=== PATIENT | female | born 1960 | race Caucasian/White ===

== ENCOUNTER 2021-06-14 09:50 | Inpatient (IN) | payer OTHER, SELFPAY ==
[2021-06-14] VITALS (11 sets, daily range): BP systolic 109–151; BP diastolic 50–105; PULSE 47–113; RESP 18–24; TEMP 36.2–37.3; O2SAT 89–96; BMI 22.8; BMI 22.6
--- NOTE | 2021-06-14 10:18 | ED.RN ---
pt was placed in er room. 3 l nc oxygen placed. pt oxygenation improved along with respiratory distress.
--- NOTE | 2021-06-14 10:43 | EKG12_ITS ---
Test Reason : SOB Blood Pressure : / mmHG Vent. Rate : 106 BPM Atrial Rate : 106 BPM P-R Int : 112 ms QRS Dur : 078 ms QT Int : 502 ms P-R-T Axes : 069 078 102 degrees QTc Int : 666 ms Sinus tachycardia with frequent Premature ventricular complexes ST & T wave abnormality, consider lateral ischemia Prolonged QT Abnormal ECG Confirmed by BEAU KERNS, JANEL ([id number]), in store marketing associate STEPHANIE CAMERON ([id number]) on 06/15/2021 1:23:37 PM Referred By: GHADA Confirmed By:JANEL YANEZ MD
--- NOTE | 2021-06-14 10:48 | NURSING ---
NO OLD EKGS
[2021-06-14 11:19] LABS: Absolute Lymphocyte Count 1.21 X10^3/uL (0.83-4.51); Absolute Neutrophil Count 4.7 X10^3/uL (2.0-7.7); Basophil# 0.02 X10^3/uL; Basophil% 0.3 % (0-1); Eosinophil# 0.01 X10^3/uL; Eosinophils% 0.2 % (0-5); Hematocrit 43.3 % (37-47); Hemoglobin 14.8 g/dL (12.0-15.0); Lymphocyte # 1.21 X10^3/ul (0.83-4.51); Mean Corp Hgb Conc 34.2 g/dL (32-36); Mean Corpuscular Hgb 29.8 pg (27.0-32.0); Mean Corpuscular Volume 87.3 fL (81-99); Monocyte# 0.39 X10^3/uL; Monocyte% 6.1 % (0-10); NRBC Flagged by Analyzer 0 % (0-5); Neutrophil # 4.73 X10^3/uL (2.7-7.7); Neutrophil % 74.1 % (47-70); Platelet Count 131 K/mm3 (150-450); RBC Distribution Width CV 13.8 % (11.6-14.6); RBC Distribution Width SD 44.3 fl (35.1-43.9); Red Blood Count 4.96 M/mm3 (4.2-5.4); White Blood Count 6.4 K/mm3 (4.4-11.0)
[2021-06-14 11:32] LABS: ALB/GLOB Ratio 0.7 RATIO (0.9-2.4); AST(SGOT) 27 U/L (15-37); Alanine Aminotransfer ALT/SGPT 30 U/L (13-56); Albumin, Serum 2.8 g/dL (3.2-5.0); Alkaline Phosphatase 104 U/L (45-117); Anion Gap 5 (5-15); BUN 9 mg/dL (7-18); BUN/Creat Ratio 11.9 RATIO (10-20); Calcium,Total 8.3 mg/dL (8.5-10.1); Chloride 102 mmol/L (98-107); Creatinine, Serum 0.76 mg/dL (0.55-1.02); EST Glomerular Filtration Rate 82 mL/min (>60); Est Glom Filt Rate - Afr Amer 99 mL/min (>60); Estimated Creatinine Clearance 59.92 ml/min; Globulin 3.9 g/dL (2.2-4.2); Glucose 123 mg/dL (74-106); Protein, Total 6.7 g/dL (6.4-8.2); Sodium Level 135 mmol/L (136-145)
--- NOTE | 2021-06-14 11:38 | RAD_ITS ---
STUDY: X-RAY CHEST REASON FOR EXAM: Female, 61 years old. Shortness of breath. Recent exposure to Covid TECHNIQUE: Single AP portable view of the chest. COMPARISON: None. FINDINGS: Hyperinflation. Mild degree of the increased interstitial markings of the lung bases suggestive of possible mild scarring. Mild increased linear markings in the left upper lobe. There is no demonstrated pleural abnormality. Sternal cerclage wires and vascular clips are present from a prior sternotomy and coronary artery bypass graft procedure (CABG). Normal mediastinum and kami. Normal visualized pulmonary arteries. There is atherosclerotic calcification of the aortic arch with tortuosity. Normal visualized thoracic spine. Normal visualized ribs, clavicles, and shoulders. Hiatal hernia. RAD/Chest 1 View (Portable) IMPRESSION: Hyperinflation. No focal consolidation is seen. Findings suggest mild scarring at the lung bases. Electronically Signed: Fredi Randolph MD at 12:07 EDT , Service support ,
[2021-06-14 11:40] LABS: Lactic Acid 0.9 mmol/L (0.4-1.9)
[2021-06-14] MEDS: dexAMETHasone 4 MG/ML Vial 6 MG IV (12:38)
[2021-06-14] MEDS: Potassium Chloride Oral Tablet 20 MEQ 40 MEQ PO (12:38)
--- NOTE | 2021-06-14 14:06 | EDS_ITS ---
HPI History of Present Illness Chief Complaint: Shortness of Breath Informant: patient Onset/Context/Timing Onset: Days (3) Context: gradual Timing: Continuous Quality: Positive for Dyspnea on exertion Worsened by: Coughing Relieved by: Nothing Associated Symptoms cough, sore throat, white sputum and yellow sputum; Negative for rhinorrhea, ear pain, fever or chills Chest Pain: Positive for None Narrative Narrative: Patient presents with shortness of breath that has been getting worse over the last 3 days. Patient states her mother recently tested positive for COVID-19. Patient has been exposed to her but does not live with her. Patient is not on home oxygen. Patient admits to a cough with some yellow and white sputum. Patient states her breathing is worse with coughing. Patient also admits to a sore throat. Patient denies any fevers or chills. Patient denies any chest pain. Patient also admits to some nausea, vomiting, and diarrhea. Patient also admits to mild headache. PE Risk Factors: Positive for Cancer; Negative for OCP + Smoking + > 35, Prior DVT or PE, Recent immobilization, Recent surgery and Recent travel [facility] Medical History Coronary artery disease GERD (gastroesophageal reflux disease) Skin cancer Home Medications amitriptyline 25 mg PO DAILY 06/14/21 [History Last Taken Unknown] atorvastatin 80 mg PO DAILY 06/14/21 [History Last Taken Unknown] citalopram mg 06/14/21 [History Last Taken Unknown] clobetasol 1 applic TOPICAL BID 06/14/21 [History Last Taken Unknown] ezetimibe 10 mg PO DAILY 06/14/21 [History Last Taken Unknown] levothyroxine [Synthroid] 75 mcg PO DAILY 06/14/21 [History Last Taken Unknown] metoprolol tartrate 25 mg PO BID 06/14/21 [History Last Taken Unknown] oxycodone-acetaminophen 1 tab PO Q6H PRN PRN 06/14/21 [History Last Taken Unknown] pantoprazole 40 mg PO DAILY 06/14/21 [History Last Taken Unknown] pregabalin 50 mg PO DAILY 06/14/21 [History Last Taken Unknown] ranolazine 1,000 mg PO BID 06/14/21 [History Last Taken Unknown] Allergy/AdvReac Type Severity Reaction Status Date / Time gabapentin Allergy Rash Verified 06/14/21 09:52 Surgical History History of cholecystectomy Hx of CABG Hx of heart artery stent Social History Smoking Status: Current every day smoker tobacco type: cigarettes ROS ROS ED Constitutional Constitutional ED: Denies chills or fever(s) Eyes Eyes: Denies blurry vision or change in vision ENT ENT ED: Denies rhinorrhea or sore throat Cardiovascular Cardiovascular: Denies chest pain or palpitations Respiratory/Chest Respiratory/Chest: Reports cough, dyspnea and sputum Gastrointestinal Gastrointestinal: Reports diarrhea, nausea and vomiting Genitourinary Genitourinary ED: Denies dysuria or hematuria Musculoskeletal Musculoskeletal: Denies back pain or neck pain Integumentary Denies abscess or rash Neurologic Neurologic: Reports headache(s); Denies weakness Allergic/Immunologic Allergic/Immunologic ED: Denies mouth swelling or urticaria EXAM Physical Exam Const Vital Signs: 06/14/21 09:51 06/14/21 11:16 06/14/21 11:24 Temperature 98.7 F 99.2 F H Temperature Source Temporal Oral Pulse Rate 111 H 108 H Respiratory Rate 18 24 H Respiratory Effort Short of Breath Respiratory Depth Deep Respiratory Pattern Tachypnea Blood Pressure 123/105 H 112/66 Blood Pressure Mean 111 81 Pulse Ox 89 92 Oxygen Delivery Method Room Air Nasal Cannula Nasal Cannula Oxygen Flow Rate (L/min) 3 3 06/14/21 12:10 06/14/21 14:06 06/14/21 14:41 Temperature 98.7 F 98.8 F Temperature Source Oral Oral Pulse Rate 109 H 113 H Respiratory Rate 24 H 24 H Respiratory Effort Respiratory Depth Respiratory Pattern Blood Pressure 151/54 H 109/54 L 110/68 Blood Pressure Mean 86 72 82 Pulse Ox 94 91 92 Oxygen Delivery Method Nasal Cannula Nasal Cannula Nasal Cannula Oxygen Flow Rate (L/min) 3 3 Positive well nourished and well developed General Appearance ED: well developed HEENT Reports moist mucous membranes Neck supple and no JVD Resp normal respiratory effort Auscultation: diminished lung sounds diffuse Cardio regular rate, regular rhythm and no murmurs GI normal to inspection, nondistended, normoactive bowel sounds and non-tender Palpation: soft Extremity normal to inspection General Extremety ED: Negative for edema or tenderness General Extremity: Negative for edema Neuro oriented x3, CN's II-XII intact bilaterally and no sensory deficits noted Sensorium / Orientation: alert Motor Exam: strength 5/5 throughout Psych mental status grossly normal Skin no rashes or lesions noted MDM MDM MDM Narrative Medical decision making narrative: EKG was obtained. On my interpretation, it showed a sinus tachycardia with a rate of 106. There are frequent PVCs noted. There are nonspecific ST-T wave changes noted. QT interval is somewhat prolonged at 666 ms. [place] interval and QRS intervals were normal. Harmony was normal. There are no prior EKGs available for comparison. Portable 1 view chest x-ray was obtained. On my interpretation, lung palomino are show chronic changes and hyperinflation. There is normal cardiac silhouette. Bony thorax is normal. There is no acute process noted. Radiologist also interpreted the x- ray and agrees. CBC and comprehensive metabolic profile were essentially within normal limits. Potassium was low at 3.0. Patient was given a dose of oral potassium here. Lactate was normal. COVID-19 rapid antigen was obtained and was positive. Patient's oxygen saturation while resting in bed were normal however, her sats would drop when she moved in bed and got up to use the bedside commode. Patient was given a dose of Decadron here. Case was discussed with the hospitalist. He will admit the patient to his service. Patient understood and was agreeable with that plan. All questions were answered. Lab Data Attestation: I reviewed the patient's lab results. Labs: Laboratory Results - last 24 hr 06/14/21 06/14/21 06/14/21 11:03 11:03 11:03 WBC 6.4 RBC 4.96 Hgb 14.8 Hct 43.3 MCV 87.3 MCH 29.8 MCHC 34.2 RDW Std Deviation 44.3 H RDW Coeff of Hodan 13.8 Plt Count 131 L MPV 11.0 Immature Gran % (Auto) 0.300 Neut % (Auto) 74.1 H Lymph % (Auto) 19.0 Crenshaw % (Auto) 6.1 Eos % (Auto) 0.2 Baso % (Auto) 0.3 Absolute Neuts (auto) 4.7 Absolute Lymphs (auto) 1.21 Nucleated RBC % 0 Sodium 135 L Potassium 3.0 L Chloride 102 Carbon Dioxide 28.0 Anion Gap 5 BUN 9 Creatinine 0.76 Estim Creat Clear Calc 59.92 Est GFR (MDRD) Af Amer 99 Est GFR (MDRD) Non-Af 82 BUN/Creatinine Ratio 11.9 Glucose 123 H Lactic Acid 0.9 Calcium 8.3 L Total Bilirubin 0.50 AST 27 ALT 30 Alkaline Phosphatase 104 Total Protein 6.7 Albumin 2.8 L Globulin 3.9 Albumin/Globulin Ratio 0.7 L Radiography Diagnostic Testing: Radiology Impression Chest X-Ray 06/14/21 11:38 IMPRESSION: Hyperinflation. No focal consolidation is seen. Findings suggest mild scarring at the lung bases. Electronically Signed: Fredi Randolph MD at 12:07 EDT , Service support , EKG Initial EKG: Attestation: I personally reviewed and interpreted this EKG as follows: Interpretation: Sinus Tachycardia (106) and Non-Specific ST Changes Prior EKG tracings: not available for review Treatment and Re-Evaluation Vital Sign Attestation:: Vital signs were reviewed prior to admission. They are stable. Discharge Plan Dx/Rx/DC Orders Clinical Impression: COVID-19, Hypoxia Disposition Disposition: Acute Care [facility]
--- NOTE | 2021-06-14 14:09 | NURSING ---
DR LOGAN VICENTE
--- NOTE | 2021-06-14 14:31 | PCM.HP.STD ---
HPI - General HPI Narrative JOSE DAVID DARBY, is a 61 F who presents with generalized illness for the past 3 days. Patient has been experiencing myalgia's, nausea vomiting diarrhea. More recently she has been having increasing shortness of breath and presented to the emergency room. She presented 89% on room air was placed on 3 L and her sats have been in the 90s. Patient did receive dexamethasone 6 mg x 1. Patient stated that she contracted Covid from her mother. Patient has not been vaccinated. [facility] Medical History Coronary artery disease GERD (gastroesophageal reflux disease) Skin cancer Home Medications amitriptyline 25 mg PO DAILY 06/14/21 [History Last Taken Unknown] atorvastatin 80 mg PO DAILY 06/14/21 [History Last Taken Unknown] citalopram mg 06/14/21 [History Last Taken Unknown] clobetasol 1 applic TOPICAL BID 06/14/21 [History Last Taken Unknown] ezetimibe 10 mg PO DAILY 06/14/21 [History Last Taken Unknown] levothyroxine [Synthroid] 75 mcg PO DAILY 06/14/21 [History Last Taken Unknown] metoprolol tartrate 25 mg PO BID 06/14/21 [History Last Taken Unknown] oxycodone-acetaminophen 1 tab PO Q6H PRN PRN 06/14/21 [History Last Taken Unknown] pantoprazole 40 mg PO DAILY 06/14/21 [History Last Taken Unknown] pregabalin 50 mg PO DAILY 06/14/21 [History Last Taken Unknown] ranolazine 1,000 mg PO BID 06/14/21 [History Last Taken Unknown] Allergy/AdvReac Type Severity Reaction Status Date / Time gabapentin Allergy Rash Verified 06/14/21 09:52 Surgical History History of cholecystectomy Hx of CABG Hx of heart artery stent Social History Smoking Status: Current every day smoker tobacco type: cigarettes ROS ROS Narrative All review of systems were negative except as mentioned above in the history of present illness and the other review of systems. Vital Signs Vital Signs Vital Signs: 06/14/21 09:51 06/14/21 11:16 06/14/21 11:24 Temperature 37.1 C 37.3 C H Temperature Source Temporal Oral Pulse Rate 111 H 108 H Respiratory Rate 18 24 H Respiratory Effort Short of Breath Respiratory Depth Deep Respiratory Pattern Tachypnea Blood Pressure 123/105 H 112/66 Blood Pressure Mean 111 81 Pulse Ox 89 92 Oxygen Delivery Method Room Air Nasal Cannula Nasal Cannula Oxygen Flow Rate (L/min) 3 3 06/14/21 12:10 06/14/21 14:06 Temperature 37.1 C Temperature Source Oral Pulse Rate 109 H Respiratory Rate 24 H Respiratory Effort Respiratory Depth Respiratory Pattern Blood Pressure 151/54 H 109/54 L Blood Pressure Mean 86 72 Pulse Ox 94 91 Oxygen Delivery Method Nasal Cannula Nasal Cannula Oxygen Flow Rate (L/min) 3 Weight Weight: 56.699 kg Body Mass Index (BMI) 22.8 Physical Exam Const alert Constitutional Narrative: Uncomfortable. Afebrile. Nontoxic. HEENT normocephalic Resp normal respiratory effort, no retractions, no use of accessory muscles and clear to auscultation bilaterally Cardio regular rate, regular rhythm, S1 normal heart sound and S2 normal heart sound GI normal to inspection, nondistended, normoactive bowel sounds, soft to palpation, non-tender and non-distended Extremity normal to inspection Skin Skin Narrative: Raised lesion on her owusu with scab overlying Neuro Sensorium / Orientation: awake and alert Psych Mood & Affect: anxious Results Lab / Micro Data Attestation: I reviewed the patient's lab results. Result Diagrams: 06/14/21 11:03 06/14/21 11:03 Labs: Laboratory Results - last 24 hr 06/14/21 11:03: WBC 6.4, RBC 4.96, Hgb 14.8, Hct 43.3, MCV 87.3, MCH 29.8, MCHC 34.2, RDW Std Deviation 44.3 H, RDW Coeff of Hodan 13.8, Plt Count 131 L, MPV 11.0, Immature Gran % (Auto) 0.300, Neut % (Auto) 74.1 H, Lymph % (Auto) 19.0, Robertson % (Auto) 6.1, Eos % (Auto) 0.2, Baso % (Auto) 0.3, Absolute Neuts (auto) 4.7, Absolute Lymphs (auto) 1.21, Nucleated RBC % 0 06/14/21 11:03: Sodium 135 L, Potassium 3.0 L, Chloride 102, Carbon Dioxide 28.0, Anion Gap 5, BUN 9, Creatinine 0.76, Estim Creat Clear Calc 59.92, Est GFR (MDRD) Af Amer 99, Est GFR (MDRD) Non-Af 82, BUN/Creatinine Ratio 11.9, Glucose 123 H, Calcium 8.3 L, Total Bilirubin 0.50, AST 27, ALT 30, Alkaline Phosphatase 104, Total Protein 6.7, Albumin 2.8 L, Globulin 3.9, Albumin/Globulin Ratio 0.7 L 06/14/21 11:03: Lactic Acid 0.9 Micro: Microbiology 06/14/21 11:14 Nasal Secretion SARS-CoV-2 Antigen (Rapid) - Final SARS-CoV-2 (COVID 19) Radiology Impression Chest X-Ray 06/14/21 11:38 IMPRESSION: Hyperinflation. No focal consolidation is seen. Findings suggest mild scarring at the lung bases. Electronically Signed: Fredi Randolph MD at 12:07 EDT , Service support , Assessment & Plan Assessment/Plan (1) COVID-19: (2) Hypoxia: PLAN: 1. Acute COVID-19 pneumonia Onset was 06/11, patient will need to quarantine until the th Patient received dexamethasone in the emergency room. Will start patient on remdesivir as she has required oxygen. Consult placed to infectious disease to see if patient would be a candidate for bacitinib Patient unvaccinated Informed the patient and her significant other that we are here to try to help and if she is would put her trust in the physicians here then we can initiate the after mentioned treatment. I did tell her that if she wants ivermectin that she would need to go to [facility]. She had nursing and other comfortable with remaining here. Informed them both that it is unclear as the trajectory of her symptoms but we will do all that we can to prevent her from getting worse. Check D-dimer and if elevated for age, check a CT angiogram of the chest. Inform the patient significant other who is at bedside that he would need to quarantine for 14 days and get tested. I did not ask his vaccination status. 2. CAD Status post CABG Stable 3. Hypokalemia Replaced emergency room Monitor 4. VTE prophylaxis: High risk. 40 mg of enoxaparin twice daily. Charges/Coding Visit Charges Inpatient E&M: 86385 Init Hosp L3
--- NOTE | 2021-06-14 14:34 | NURSING ---
MED SURG LOGAN MONTEJO 19, HYPOXIA
--- NOTE | 2021-06-14 17:49 | PCS.PANDOC ---
PANDEMIC DOCUMENTATION INITIATED: Date: 05/16/2021 Time: 190
[2021-06-14] MEDS: 0.9% Saline Lock 10 ML Syringe IV (18:31)
[2021-06-14] MEDS: Ondansetron 4 MG/2 ML Vial IV (18:31)
--- NOTE | 2021-06-14 20:14 | CT_ITS ---
STUDY: CTA CHEST REASON FOR EXAM: Female, 61 years old. Elevated D-dimer RADIATION DOSAGE (If Supplied By Facility): CTDIvol = ( 6.79 ) mGy, DLP = ( 227.13 ) mGycm TECHNIQUE: The examination was performed with the intravenous administration of IV 75mL Isovue-370. Post-processing of the angiographic images was performed, with multiplanar reformation and 3D reconstruction. Individualized dose optimization techniques were used for this CT. COMPARISON: None. FINDINGS: Normal enhancement of the main pulmonary artery and right and left pulmonary arteries. Normal enhancement of the bilateral peripheral pulmonary arteries. There is no demonstrated pulmonary embolism. Normal thoracic aorta and visualized great vessels. There is no demonstrated aortic dissection. There are calcifications of the coronary arteries. Evidence of prior CABG. Normal mediastinum. Normal hilar regions. Normal visualized trachea and bronchi. The lungs are well expanded. Emphysema. Spiculated right upper lobe nodule measures 8 mm. Area of scarring and nodularity within the left upper lobe. Nodular focus measures up to 7 mm Normal pleura. Normal chest wall structures. Normal osseous structures. There is a large hiatal hernia composed mostly of the fundus of the stomach. Cholecystectomy. CT/CTA Chest W/WO Contrast IMPRESSION: No demonstrated pulmonary embolism or arterial dissection. Pulmonary nodules and emphysematous disease as above. Largest nodule measures up to 8 mm. The Fleischner society pulmonary nodule recommendations are usually for follow-up and management of nodules smaller than 8 mm. Detected Incidentally at non-screening CT Nodule size (mm) less than or equal to 4 low risk patients: no follow-up needed high risk patients: follow-up at 12 months and if no change, no further imaging needed Nodule size > 4 - 6 mm low risk patients: follow-up at 12 months and if no change, no further imaging needed high risk patients: initial follow-up CT at 6 - 12 months and then at 18 - 24 months if no change Nodule size > 6 - 8 mm low risk patients: initial follow-up CT at 6 - 12 months and then at 18 - 24 months if no change high risk patients: initial follow-up CT at 3 - 6 months and then at 9 - 12 and 24 months if no change Nodule size > 8 mm either low or high risk patients: follow-up CTs at around 3, 9, and [address], PET, and / or biopsy Note: Newly detected indeterminate nodule in persons 35 years of age or older. Low risk patients: minimal or absent history of smoking and or other known risk factors high risk patients: history of smoking or of other known risk factors KNOWN RISK FACTORS: History of lung cancer in first-degree relative; exposure to asbestos, radon, or uranium. NOTE: Nonsolid, partially solid, or ground-glass nodules may require longer follow-up to exclude indolent adenocarcinoma. Electronically Signed: Danilo Escobar MD at 21:39 EDT Tel , Service support ,
[2021-06-14] MEDS: Enoxaparin 40 MG/0.4 ML Syringe SC (22:29)
[2021-06-14] MEDS: guaiFENesin 600 MG Tablet PO (22:29)
[2021-06-14] MEDS: Metoprolol Tartrate 25 MG Tablet PO (22:29)
[2021-06-14] MEDS: Ranolazine 500 MG Tablet 1000 MG PO (22:29)
[2021-06-14] MEDS: Atorvastatin Calcium 80 MG Tablet PO (22:29)
[2021-06-15] VITALS (13 sets, daily range): BP systolic 89–119; BP diastolic 51–66; PULSE 55–82; RESP 18–24; TEMP 36.1–36.6; O2SAT 90–98
[2021-06-15] MEDS: Levothyroxine 75 MCG Tablet PO (05:52)
[2021-06-15 06:16] LABS: Absolute Lymphocyte Count 1.24 X10^3/uL (0.83-4.51); Absolute Neutrophil Count 3.7 X10^3/uL (2.0-7.7); Basophil# 0.01 X10^3/uL; Basophil% 0.2 % (0-1); Hematocrit 40.5 % (37-47); Hemoglobin 13.8 g/dL (12.0-15.0); Lymphocyte # 1.24 X10^3/ul (0.83-4.51); Lymphocyte % 22.8 % (19-41); Mean Corp Hgb Conc 34.1 g/dL (32-36); Mean Corpuscular Hgb 30.3 pg (27.0-32.0); Mean Platelet Vol. 10.9 fl (6.2-12.0); Monocyte# 0.43 X10^3/uL; Monocyte% 7.9 % (0-10); NRBC Flagged by Analyzer 0 % (0-5); Neutrophil # 3.73 X10^3/uL (2.7-7.7); Neutrophil % 68.5 % (47-70); Platelet Count 149 K/mm3 (150-450); RBC Distribution Width SD 45.9 fl (35.1-43.9); Red Blood Count 4.55 M/mm3 (4.2-5.4); White Blood Count 5.4 K/mm3 (4.4-11.0)
[2021-06-15 06:53] LABS: ALB/GLOB Ratio 0.7 RATIO (0.9-2.4); AST(SGOT) 27 U/L (15-37); Alanine Aminotransfer ALT/SGPT 29 U/L (13-56); Albumin, Serum 2.5 g/dL (3.2-5.0); Alkaline Phosphatase 91 U/L (45-117); Anion Gap 7 (5-15); BUN 14 mg/dL (7-18); BUN/Creat Ratio 25.4 RATIO (10-20); Calcium,Total 7.8 mg/dL (8.5-10.1); Chloride 110 mmol/L (98-107); Creatinine, Serum 0.55 mg/dL (0.55-1.02); EST Glomerular Filtration Rate 118 mL/min (>60); Est Glom Filt Rate - Afr Amer 143 mL/min (>60); Globulin 3.6 g/dL (2.2-4.2); Glucose 106 mg/dL (74-106); Potassium 3.5 mmol/L (3.5-5.1); Protein, Total 6.1 g/dL (6.4-8.2); Sodium Level 138 mmol/L (136-145)
[2021-06-15] MEDS: guaiFENesin 600 MG Tablet PO ×2 (09:19→21:39)
[2021-06-15] MEDS: Ranolazine 500 MG Tablet 1000 MG PO ×2 (09:19→21:40)
[2021-06-15] MEDS: Enoxaparin 40 MG/0.4 ML Syringe SC ×2 (09:19→21:40)
[2021-06-15] MEDS: Metoprolol Tartrate 25 MG Tablet PO (09:19)
[2021-06-15] MEDS: Pregabalin 50 MG Capsule PO (09:19)
[2021-06-15] MEDS: dexAMETHasone 4 MG Tablet 6 MG PO (09:19)
[2021-06-15] MEDS: Ezetimibe 10 MG Tablet PO (09:19)
[2021-06-15] MEDS: Pantoprazole Sodium 40 MG Tablet PO (09:19)
[2021-06-15] MEDS: Amitriptyline 25 MG Tablet PO (09:20)
--- NOTE | 2021-06-15 09:20 | NURSING ---
pt placed on tele monitor as per nursing measure d/t per continuous pulse ox reading in room, pt dalila down to 41 for little while after she has coughing spells.
--- NOTE | 2021-06-15 09:31 | ED.RN ---
documented on wrong chart
--- NOTE | 2021-06-15 11:30 | CASEMGMT ---
CINDY WYLIE Assessment: Face to Face with pt for initial transition planning/care coordination assessment. CINDY WYLIE introduced self and role at [facility], pt voices understanding and consents to assessment. Pt is A/O x4 and answers all questions appropriately at this time. Pt lying in bed with O2 on in no distress. Care providers, pharmacy, and demographics verified/updated. Admitting Dx: COVID 19 PCP:Emily Specialists: in [place] cardio Preferred Pharmacy: [facility] [place] Insurance: [facility] Shared Services Prescription Benefit: yes LW/HPOA: Pt denies having a LW/DPOA and denies need for info regarding AD. LNOK: Cody Hurst, Living Arrangements: Pt lives with and 10 year old granddtr in a single story house with 2 steps to enter with a rail. Pt reports being I in ADL's and denies concerns at home. Transportation: Pt drives self and denies concerns with transportation. DME/HHC/SNF: Pt has a shower chair, crutches, walker and BSC. She does not use any of the items. Pt denies previous HHC or SNF stays. Pt was tested at [facility]. She states her and granddtr and are not positive and she has been quarantining from them, using separate bedrooms and bathrooms. Provided pt with a verbal list of local in network DME companies, pt chose [employer] should she need O2 upon dc. Pt states she has family who can provide her with groceries and supplies. Pt states no concerns with going home at time of dc. Pt states no further concerns/needs. CM to follow. Advised pt to ask CM if any further question/concerns/needs arise, voices understanding. Pt Goal: Home Plan: Home
--- NOTE | 2021-06-15 14:50 | PCM.PN.HOSP ---
Subjective Subjective Feeling better. Objective Data Objective Data Vital Signs: Vital Signs Temp Pulse Resp BP Pulse Ox 36.6 C 66 18 105/52 L 92 06/15/21 11:47 06/15/21 13:07 06/15/21 13:07 06/15/21 13:07 06/15/21 13:07 Oxygen Flow Rate (L/min) 3 Oxygen Delivery Method Nasal Cannula Weight: 56.2 kg Body Mass Index (BMI) 22.6 Intake & Output: Intake and Output for Last 24 Hours 06/13/21 06/14/21 06/15/21 23:59 23:59 23:59 Intake Total 750.75 / 900.75 450 / 450 Output Total 400 / 400 Balance 750.75 / 500.75 50 / 50 Lab / Micro Data Result Diagrams: 06/15/21 06:00 06/15/21 06:00 Labs: Laboratory Results - last 24 hr 06/14/21 19:29: D-Dimer Quant (PE/DVT) 1.10 H* 06/15/21 06:00: WBC 5.4, RBC 4.55, Hgb 13.8, Hct 40.5, MCV 89.0, MCH 30.3, MCHC 34.1, RDW Std Deviation 45.9 H, RDW Coeff of Hodan 14.0, Plt Count 149 L, MPV 10.9, Immature Gran % (Auto) 0.600, Neut % (Auto) 68.5, Lymph % (Auto) 22.8, [place] % (Auto) 7.9, Eos % (Auto) 0.0, Baso % (Auto) 0.2, Absolute Neuts (auto) 3.7, Absolute Lymphs (auto) 1.24, Nucleated RBC % 0 06/15/21 06:00: Sodium 138, Potassium 3.5, Chloride 110 H, Carbon Dioxide 21.0, Anion Gap 7, BUN 14, Creatinine 0.55, Estim Creat Clear Calc 82.80, Est GFR (MDRD) Af Amer 143, Est GFR (MDRD) Non-Af 118, BUN/Creatinine Ratio 25.4 H, Glucose 106, Calcium 7.8 L, Total Bilirubin 0.40, AST 27, ALT 29, Alkaline Phosphatase 91, Total Protein 6.1 L, Albumin 2.5 L, Globulin 3.6, Albumin/Globulin Ratio 0.7 L Micro: Microbiology 06/14/21 11:14 Nasal Secretion SARS-CoV-2 Antigen (Rapid) - Final SARS-CoV-2 (COVID 19) Radiography Diagnostic Testing: Radiology Impression Chest CTA 06/14/21 20:14 IMPRESSION: No demonstrated pulmonary embolism or arterial dissection. Pulmonary nodules and emphysematous disease as above. Largest nodule measures up to 8 mm. The Fleischner society pulmonary nodule recommendations are usually for follow-up and management of nodules smaller than 8 mm. Detected Incidentally at non-screening CT Nodule size (mm) less than or equal to 4 low risk patients: no follow-up needed high risk patients: follow-up at 12 months and if no change, no further imaging needed Nodule size > 4 - 6 mm low risk patients: follow-up at 12 months and if no change, no further imaging needed high risk patients: initial follow-up CT at 6 - 12 months and then at 18 - 24 months if no change Nodule size > 6 - 8 mm low risk patients: initial follow-up CT at 6 - 12 months and then at 18 - 24 months if no change high risk patients: initial follow-up CT at 3 - 6 months and then at 9 - 12 and 24 months if no change Nodule size > 8 mm either low or high risk patients: follow-up CTs at around 3, 9, and 24 months dynamic contrast enhanced CT, PET, and / or biopsy Note: Newly detected indeterminate nodule in persons 35 years of age or older. Low risk patients: minimal or absent history of smoking and or other known risk factors high risk patients: history of smoking or of other known risk factors KNOWN RISK FACTORS: History of lung cancer in first-degree relative; exposure to asbestos, radon, or uranium. NOTE: Nonsolid, partially solid, or ground-glass nodules may require longer follow-up to exclude indolent adenocarcinoma. Electronically Signed: Danilo Escobar MD at 21:39 EDT Tel , Service support , Physical Exam Const alert Resp normal respiratory effort, no retractions, no use of accessory muscles and clear to auscultation bilaterally Cardio regular rate, regular rhythm, S1 normal heart sound and S2 normal heart sound GI normal to inspection, nondistended, normoactive bowel sounds, soft to palpation, non-tender and non-distended Neuro Sensorium / Orientation: awake and alert Assessment & Plan Assessment/Plan (1) COVID-19: (2) Hypoxia: PLAN: 1. Acute COVID-19 pneumonia Onset was 06/11, patient will need to quarantine until the Patient received dexamethasone in the emergency room. Will start patient on remdesivir as she has required oxygen. Patient unvaccinated Informed the patient and her significant other that we are here to try to help and if she is would put her trust in the physicians here then we can initiate the after mentioned treatment. I did tell her that if she wants ivermectin that she would need to go to [facility]. She had nursing and other comfortable with remaining here. Informed them both that it is unclear as the trajectory of her symptoms but we will do all that we can to prevent her from getting worse. Check D-dimer and if elevated for age, check a CT angiogram of the chest. Informed the patient's significant other who is at bedside that he would need to quarantine for 14 days and get tested. I did not ask his vaccination status. There is elevated and patient did have a CT angiogram of the chest. And personally reviewed the CTA of the chest and did not show any obvious pulmonary infiltrates that are typically seen with COVID-19. This showed some emphysematous changes. I suspect that patient likely has an acute exacerbation of COPD related with her COVID-19. Patient is unvaccinated presents relatively soon but her CAT scan was pretty unremarkable. Will continue with treatment for dexamethasone as well as remdesivir. If patient continues to improve then may consider discharge in the near future. Advised patient get the COVID-19 vaccine in 1 to 2 months. She states that she was supposed to get it in the next week or 2 but was unable to do so earlier due to a myriad of other nonmedical issues. 2. CAD Status post CABG Stable 3. Hypokalemia Replaced emergency room Monitor 4. VTE prophylaxis: High risk. 40 mg of enoxaparin twice daily. Charges/Coding Visit Charges Inpatient E&M: 54248 Subs Hosp L2
--- NOTE | 2021-06-15 19:52 | CON.PCM.ID_ITS ---
Assessment & Plan Assessment/Plan (1) COVID-19: PLAN: Sx started late on 06/10. Unvaccinated. On dex, remdesivir. Stuart rantine until 06/30, after that recommend covid vaccine. to get tested for covid, may be candidate for monoclonal Abs. Will follow, thank you (2) Hypoxia: HPI Consult Data Date of Consult: 06/15/21 HPI Narrative HPI Narrative: JOSE DAVID DARBY, is a 61 F who presented 06.14 with sx starting late on 06/10, c/o headache, cough, n/v/d, aches. Her mother tested (+) that same day, now admitted to another hospital. and granddaughter at home asymptomatic, he is trying to get tested. None vaccinated. Came to ED with worsening dyspnea. Full ROS performed and neg except as noted above. [facility] Medical History Coronary artery disease GERD (gastroesophageal reflux disease) Skin cancer Home Medications amitriptyline 25 mg PO DAILY 06/14/21 [History Last Taken 06/13/21] atorvastatin 80 mg PO DAILY 06/14/21 [History Last Taken 06/13/21] citalopram 10 mg PO DAILY 06/14/21 [History Last Taken 06/13/21] clobetasol 1 applic TOPICAL BID 06/14/21 [History Last Taken Unknown] ezetimibe 10 mg PO DAILY 06/14/21 [History Last Taken 06/13/21] levothyroxine [Synthroid] 75 mcg PO DAILY 06/14/21 [History Last Taken 06/13/21] metoprolol tartrate 25 mg PO BID 06/14/21 [History Last Taken 06/13/21] oxycodone-acetaminophen 1 tab PO Q6H PRN PRN 06/14/21 [History Last Taken Unknown] pantoprazole 40 mg PO DAILY 06/14/21 [History Last Taken 06/13/21] pregabalin 50 mg PO DAILY 06/14/21 [History Last Taken 06/13/21] ranolazine 1,000 mg PO BID 06/14/21 [History Last Taken 06/13/21] Allergy/AdvReac Type Severity Reaction Status Date / Time gabapentin Allergy Rash Verified 09/14/21 09:52 Surgical History History of cholecystectomy Hx of CABG Hx of heart artery stent Social History Smoking Status: Never smoker Physical Exam Const alert and oriented x3 General Appearance: cooperative Exam Limitations: no limitations HEENT normocephalic and head/scalp atraumatic Eyes PERRL and EOMs intact bilaterally Neck supple and No nodes Resp Auscultation: diminished lung sounds Cardio regular rate and regular rhythm GI normal to inspection, nondistended, normoactive bowel sounds Extremity no clubbing, cyanosis or edema Skin no rashes or lesions noted Neuro CN's II-XII intact bilaterally Lab / Micro Data Result Diagrams: 06/15/21 06:00 06/15/21 06:00 Labs: Laboratory Results - last 24 hr 06/14/21 19:29: D-Dimer Quant (PE/DVT) 1.10 H* 06/15/21 06:00: WBC 5.4, RBC 4.55, Hgb 13.8, Hct 40.5, MCV 89.0, MCH 30.3, MCHC 34.1, RDW Std Deviation 45.9 H, RDW Coeff of Hodan 14.0, Plt Count 149 L, MPV 10.9, Immature Gran % (Auto) 0.600, Neut % (Auto) 68.5, Lymph % (Auto) 22.8, [place] % (Auto) 7.9, Eos % (Auto) 0.0, Baso % (Auto) 0.2, Absolute Neuts (auto) 3.7, Absolute Lymphs (auto) 1.24, Nucleated RBC % 0 06/15/21 06:00: Sodium 138, Potassium 3.5, Chloride 110 H, Carbon Dioxide 21.0, Anion Gap 7, BUN 14, Creatinine 0.55, Estim Creat Clear Calc 82.80, Est GFR (MDRD) Af Amer 143, Est GFR (MDRD) Non-Af 118, BUN/Creatinine Ratio 25.4 H, Glucose 106, Calcium 7.8 L, Total Bilirubin 0.40, AST 27, ALT 29, Alkaline Phosphatase 91, Total Protein 6.1 L, Albumin 2.5 L, Globulin 3.6, Albumin/Globulin Ratio 0.7 L Radiology Impression Chest CTA 06/14/21 20:14 IMPRESSION: No demonstrated pulmonary embolism or arterial dissection. Pulmonary nodules and emphysematous disease as above. Largest nodule measures up to 8 mm. The Fleischner society pulmonary nodule recommendations are usually for follow-up and management of nodules smaller than 8 mm. Detected Incidentally at non-screening CT Nodule size (mm) less than or equal to 4 low risk patients: no follow-up needed high risk patients: follow-up at 12 months and if no change, no further imaging needed Nodule size > 4 - 6 mm low risk patients: follow-up at 12 months and if no change, no further imaging needed high risk patients: initial follow-up CT at 6 - 12 months and then at 18 - 24 months if no change Nodule size > 6 - 8 mm low risk patients: initial follow-up CT at 6 - 12 months and then at 18 - 24 months if no change high risk patients: initial follow-up CT at 3 - 6 months and then at 9 - 12 and 24 months if no change Nodule size > 8 mm either low or high risk patients: follow-up CTs at around 3, 9, and 24 months dynamic contrast enhanced CT, PET, and / or biopsy Note: Newly detected indeterminate nodule in persons 35 years of age or older. Low risk patients: minimal or absent history of smoking and or other known risk factors high risk patients: history of smoking or of other known risk factors KNOWN RISK FACTORS: History of lung cancer in first-degree relative; exposure to asbestos, radon, or uranium. NOTE: Nonsolid, partially solid, or ground-glass nodules may require longer follow-up to exclude indolent adenocarcinoma. Electronically Signed: Danilo Escobar MD at 21:39 EDT Tel , Service support ,
[2021-06-15] MEDS: Atorvastatin Calcium 80 MG Tablet PO (21:39)
[2021-06-16] VITALS (13 sets, daily range): BP systolic 114–123; BP diastolic 58–69; PULSE 58–81; RESP 18–20; TEMP 36.1; O2SAT 85–95
[2021-06-16] MEDS: Levothyroxine 75 MCG Tablet PO (05:43)
[2021-06-16 06:35] LABS: Hematocrit 40.9 % (37-47); Hemoglobin 14.1 g/dL (12.0-15.0); Mean Corp Hgb Conc 34.5 g/dL (32-36); Mean Corpuscular Hgb 30.3 pg (27.0-32.0); Mean Corpuscular Volume 87.8 fL (81-99); Mean Platelet Vol. 11.2 fl (6.2-12.0); Platelet Count 183 K/mm3 (150-450); RBC Distribution Width CV 14.2 % (11.6-14.6); RBC Distribution Width SD 45.2 fl (35.1-43.9); Red Blood Count 4.66 M/mm3 (4.2-5.4); White Blood Count 10.5 K/mm3 (4.4-11.0)
[2021-06-16 06:59] LABS: ALB/GLOB Ratio 0.7 RATIO (0.9-2.4); AST(SGOT) 25 U/L (15-37); Alanine Aminotransfer ALT/SGPT 30 U/L (13-56); Albumin, Serum 2.5 g/dL (3.2-5.0); Alkaline Phosphatase 88 U/L (45-117); Anion Gap 7 (5-15); BUN 23 mg/dL (7-18); BUN/Creat Ratio 34.3 RATIO (10-20); Calcium,Total 8.2 mg/dL (8.5-10.1); Chloride 110 mmol/L (98-107); Creatinine, Serum 0.67 mg/dL (0.55-1.02); EST Glomerular Filtration Rate 94 mL/min (>60); Est Glom Filt Rate - Afr Amer 114 mL/min (>60); Estimated Creatinine Clearance 67.97 ml/min; Globulin 3.6 g/dL (2.2-4.2); Glucose 112 mg/dL (74-106); Potassium 3.5 mmol/L (3.5-5.1); Protein, Total 6.1 g/dL (6.4-8.2); Sodium Level 140 mmol/L (136-145)
[2021-06-16] MEDS: Ranolazine 500 MG Tablet 1000 MG PO (08:38)
[2021-06-16] MEDS: Ezetimibe 10 MG Tablet PO (08:38)
[2021-06-16] MEDS: Pantoprazole Sodium 40 MG Tablet PO (08:38)
[2021-06-16] MEDS: guaiFENesin 600 MG Tablet PO (08:38)
[2021-06-16] MEDS: Metoprolol Tartrate 25 MG Tablet PO (08:38)
[2021-06-16] MEDS: Pregabalin 50 MG Capsule PO (08:38)
[2021-06-16] MEDS: Amitriptyline 25 MG Tablet PO (08:39)
[2021-06-16] MEDS: dexAMETHasone 4 MG Tablet 6 MG PO (08:39)
[2021-06-16] MEDS: Enoxaparin 40 MG/0.4 ML Syringe SC (08:39)
[2021-06-16] MEDS: Mineral Oil/Petrolatum Cr 1.75oz Bottle 1 APPLIC TOPICAL (12:20)
--- NOTE | 2021-06-16 12:36 | PCM.DC ---
Discharge Instructions Diet Discharge Diet: No restrictions Activity Discharge Activity: Return to Normal Activity Additional Activity Instructions:: Self isolate for at least 20 days since symptoms began (06/11-) AND at least one day (24 hours) have passed since resolution of fever without the use of fever-reducing agents AND improvement of symptoms (e.g., cough, shortness of breath) When around people in the same room, wear a face mask. Individuals also in the room should wear a mask. If possible, use a different bathroom and bedroom. Perform adequate hand hygiene. Avoid sharing dishes, glasses, etc. Dressing / Incision Call your doctor if you observe: Fever of 101 or Higher and Shortness of breath Follow Up Care Test Results: Test results from this visit will be discussed in further detail at your follow-up appointment, if applicable. Discharge Plan Admission Admit Date/Time: 06/14/21 14:21 Primary Reason for Your Visit: COVID 19. COPD exacerbation. Attending Provider: Drew Ballesteros Primary Care Provider: Maria G Diaz Discharge Orders/Prescriptions Prescriptions: New guaifenesin [Mucus Relief ER] 600 mg Tablet Extended Release 12hr 600 mg PO BID Qty: 10 RF: 0 dexamethasone 4 mg Tablet 6 mg PO DAILY 7 Days Qty: 11 RF: 0 albuterol sulfate 90 mcg/actuation HFA aerosol inhaler 2 puff inhalation Q6H PRN (Reason: shortness of breath or wheezing) Qty: 6.7 RF: 0 Continued atorvastatin 80 mg tablet 80 mg PO DAILY RF: 0 citalopram 10 mg tablet 10 mg PO DAILY RF: 0 levothyroxine [Synthroid] 75 mcg tablet 75 mcg PO DAILY RF: 0 oxycodone-acetaminophen 5-325 mg tablet 1 tab PO Q6H PRN PRN (Reason: Pain) RF: 0 amitriptyline 25 mg tablet 25 mg PO DAILY RF: 0 pantoprazole 40 mg tablet,delayed release (DR/EC) 40 mg PO DAILY RF: 0 clobetasol 0.05 % ointment 1 applic TOPICAL BID RF: 0 ezetimibe 10 mg tablet 10 mg PO DAILY RF: 0 metoprolol tartrate 25 mg tablet 25 mg PO BID RF: 0 pregabalin 50 mg capsule 50 mg PO DAILY RF: 0 ranolazine 1,000 mg tablet extended release 12 hr 1,000 mg PO BID RF: 0 Referrals / Follow Up: Gary Szymanski MD [STAFF PHYSICIAN] - Within 2 Weeks (COPD work up) Maria G Diaz DO [Primary Care Provider] - Within 2 Weeks Disposition Disposition (needs filled in before D/C Order can be placed): Home, Self Care
--- NOTE | 2021-06-16 12:44 | DS.PCM_ITS ---
Providers Date of Admission: 06/14/21 Primary Care Physician: Dr. 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 Routine Comment: Reason for Consult:: possible burn to lower back from heating pad use Reason For Visit: COVID 19 Diagnosis Discharge Diagnosis (1) COVID-19: Status: Acute Code(s): U07.1 - COVID-19 (2) Hypoxia: Status: Acute Code(s): R09.02 - Hypoxemia (3) COPD with acute exacerbation: Status: Chronic Code(s): J44.1 - Chronic obstructive pulmonary disease with (acute) exacerbation Medications at Discharge Home Medications amitriptyline 25 mg PO DAILY 06/14/21 atorvastatin 80 mg PO DAILY 06/14/21 citalopram 10 mg PO DAILY 06/14/21 clobetasol 1 applic TOPICAL BID 06/14/21 ezetimibe 10 mg PO DAILY 06/14/21 levothyroxine [Synthroid] 75 mcg PO DAILY 06/14/21 metoprolol tartrate 25 mg PO BID 06/14/21 oxycodone-acetaminophen 1 tab PO Q6H PRN PRN 06/14/21 pantoprazole 40 mg PO DAILY 06/14/21 pregabalin 50 mg PO DAILY 06/14/21 ranolazine 1,000 mg PO BID 06/14/21 albuterol sulfate 2 puff INHALATION Q6H PRN #6.7 g 06/16/21 dexamethasone 6 mg PO DAILY 7 Days #11 tab 06/16/21 guaifenesin [Mucus Relief ER] 600 mg PO BID #10 tab 06/16/21 Hospital Course Operations None Summary of Care Provided Minutes Spent on Discharge: 32 Hospital Course: 1. Acute COVID-19 pneumonia Onset was 06/11, patient will need to quarantine until the 30th Patient received dexamethasone in the emergency room. Will start patient on remdesivir as she has required oxygen. Patient unvaccinated Informed the patient and her significant other that we are here to try to help and if she is would put her trust in the physicians here then we can initiate the after mentioned treatment. I did tell her that if she wants ivermectin that she would need to go to [facility]. She had nursing and other comfortable with remaining here. Informed them both that it is unclear as the trajectory of her symptoms but we will do all that we can to prevent her from getting worse. Check D-dimer and if elevated for age, check a CT angiogram of the chest. Informed the patient's significant other who is at bedside that he would need to quarantine for 14 days and get tested. I did not ask his vaccination status. There is elevated and patient did have a CT angiogram of the chest. And personally reviewed the CTA of the chest and did not show any obvious pulmonary infiltrates that are typically seen with COVID-19. This showed some emphysematous changes. I suspect that patient likely has an acute exacerbation of COPD related with her COVID-19. Patient is unvaccinated presents relatively soon but her CAT scan was pretty unremarkable. Will continue with treatment for dexamethasone as well as remdesivir. If patient continues to improve then may consider discharge in the near future. Advised patient get the COVID-19 vaccine in 1 to 2 months. She states that she was supposed to get it in the next week or 2 but was unable to do so earlier due to a myriad of other nonmedical issues. Patient dropped down to 89% with 4 L nasal cannula. 90% on room air. Overall feels better. Plan is to discharge patient home with oxygen. Patient advised that she presented with an several days of onset of symptoms is possible that she could get worse and if so to come back into the emergency room. Patient does have a pulse oximeter at home. Patient will be quarantining at her mother's home who also has COVID-19. Physical Exam Resp normal respiratory effort, no retractions, no use of accessory muscles and clear to auscultation bilaterally Cardio regular rate, regular rhythm, S1 normal heart sound and S2 normal heart sound GI normal to inspection, nondistended, normoactive bowel sounds Weight / BMI Weight Weight: 56.2 kg Body Mass Index (BMI) 22.6 ABG / Lab / Microbiology Data Result Diagrams: 06/16/21 06:04 06/16/21 06:04 Laboratory: Laboratory Results - last 24 hr 06/16/21 06:04: WBC 10.5, RBC 4.66, Hgb 14.1, Hct 40.9, MCV 87.8, MCH 30.3, MCHC 34.5, RDW Std Deviation 45.2 H, RDW Coeff of Hodan 14.2, Plt Count 183, MPV 11.2 06/16/21 06:04: Sodium 140, Potassium 3.5, Chloride 110 H, Carbon Dioxide 23.0, Anion Gap 7, BUN 23 H, Creatinine 0.67, Estim Creat Clear Calc 67.97, Est GFR (MDRD) Af Amer 114, Est GFR (MDRD) Non-Af 94, BUN/Creatinine Ratio 34.3 H, Glucose 112 H, Calcium 8.2 L, Total Bilirubin 0.30, AST 25, ALT 30, Alkaline Phosphatase 88, Total Protein 6.1 L, Albumin 2.5 L, Globulin 3.6, Albumin/Globulin Ratio 0.7 L Microbiology: Microbiology 06/14/21 11:41 Blood Culture (Wb) - Left Hand Blood Culture - Preliminary No growth in 48 hours. 06/14/21 11:03 Blood Culture (Wb) - Anticubital Left Blood Culture - Preliminary No growth in 48 hours. 06/14/21 11:14 Nasal Secretion SARS-CoV-2 Antigen (Rapid) - Final SARS-CoV-2 (COVID 19) D/C Instructions Discharge Diet: No restrictions Additional Activity Instructions: Self isolate for at least 20 days since symptoms began (06/11-) AND at least one day (24 hours) have passed since resolution of fever without the use of fever-reducing agents AND improvement of symptoms (e.g., cough, shortness of breath) When around people in the same room, wear a face mask. Individuals also in the room should wear a mask. If possible, use a different bathroom and bedroom. Perform adequate hand hygiene. Avoid sharing dishes, glasses, etc. Call your doctor if you observe: Fever of 101 or Higher and Shortness of breath Meaningful Use Info Meaningful Use Diagnoses (Choose all that apply): None applicable Discharge Plan Admission Admit Date/Time: 06/14/21 14:21 Primary Reason for Your Visit: COVID 19. COPD exacerbation. Attending Provider: Drew Ballesteros Primary Care Provider: Maria G Diaz Discharge Orders/Prescriptions Prescriptions: New guaifenesin [Mucus Relief ER] 600 mg Tablet Extended Release 12hr 600 mg PO BID Qty: 10 RF: 0 dexamethasone 4 mg Tablet 6 mg PO DAILY 7 Days Qty: 11 RF: 0 albuterol sulfate 90 mcg/actuation HFA aerosol inhaler 2 puff inhalation Q6H PRN (Reason: shortness of breath or wheezing) Qty: 6.7 RF: 0 Continued atorvastatin 80 mg tablet 80 mg PO DAILY RF: 0 citalopram 10 mg tablet 10 mg PO DAILY RF: 0 levothyroxine [Synthroid] 75 mcg tablet 75 mcg PO DAILY RF: 0 oxycodone-acetaminophen 5-325 mg tablet 1 tab PO Q6H PRN PRN (Reason: Pain) RF: 0 amitriptyline 25 mg tablet 25 mg PO DAILY RF: 0 pantoprazole 40 mg tablet,delayed release (DR/EC) 40 mg PO DAILY RF: 0 clobetasol 0.05 % ointment 1 applic TOPICAL BID RF: 0 ezetimibe 10 mg tablet 10 mg PO DAILY RF: 0 metoprolol tartrate 25 mg tablet 25 mg PO BID RF: 0 pregabalin 50 mg capsule 50 mg PO DAILY RF: 0 ranolazine 1,000 mg tablet extended release 12 hr 1,000 mg PO BID RF: 0 Referrals / Follow Up: Gary Szymanski MD [STAFF PHYSICIAN] - Within 2 Weeks (COPD work up) Maria G Diaz DO [Primary Care Provider] - Within 2 Weeks Disposition Disposition (needs filled in before D/C Order can be placed): Home, Self Care Charges/Coding Visit Charges Inpatient E&M: 95275 Disch Hosp
--- NOTE | 2021-06-16 16:00 | CASEMGMT ---
CINDY WYLIE NOTE: Pt being discharged home. Home ambulatory testing has been completed. Pt qualifies for O2 @ 4 L/M w/exertion. Script has been faxed to [facility] and portable tank has been delivered to [facility] and being taken to pt's room at this time. Call placed to pt and she was made aware to contact [facility] when she returns home so O2 concentrator and additional tanks can be delivered to her. She states she plans to stay @ her mother's home in [facility] @ discharge. Her mother's address is: [address] [place] [address] [address] ([facility]) [place] [address] Call placed to Shaylee @ [facility] and she was provided w/pt's mothers' address. Ted DELA CRUZ RN CM
--- NOTE | 2021-06-17 16:50 | CASEMGMT ---
CINDY WYLIE Discharge Follow-Up Phone Call. Marija: 5 Strata: 1 Discharge Date: 06/16/21 Adm Dx: COVID Call to pt to inquire about how she has been doing since being discharged from the hospital. Pt states she still has a little cough but feeling better. She states she received the oxygen from [employer] last PM and got her meds @ [facility] before leaving the hospital w/out difficulty . She has not scheduled the appts w/PCP Sheets or Dr Szymanski yet, but is plans to do so. She denies having any questions about the medications or discharge instructions. Ted RUIZN RN CM
== END 2021-06-16 16:45 | disposition home or self-care (01) | DRG 178 ==
LOC: ED 14:19 → MS3 16:46
PROVIDERS: Internal Medicine Infectious Disease; Emergency Provider Emergency Medicine; PCP Family Medicine
DX: U07.1 COVID-19 (principal); J44.0 Chronic obstructive pulmonary disease with (acute) lower respiratory infection; J44.1 Chronic obstructive pulmonary disease with (acute) exacerbation; F17.210 Nicotine dependence, cigarettes, uncomplicated; I25.10 Atherosclerotic heart disease of native coronary artery without angina pectoris; Z95.1 Presence of aortocoronary bypass graft; E87.6 Hypokalemia
CPT/HCPCS: 36415; 71045; 71275; 80053; 83605; 85025; 85027; 85379; 87040; 87426; 93005; 94762; 97802; 99251; 99285; J7040; J7050; A4216; G0463; J2405

== ENCOUNTER → 2024-03-04 | Outpatient (CLI) | payer MEDICARE, SELFPAY | END | disposition home or self-care (01) | LOC: LABSPEC 16:44 | PROVIDERS: PCP Family Medicine; Referring Provider Otolaryngology Otolaryngology/Facial Plastic Surgery; Visit Provider Otolaryngology Otolaryngology/Facial Plastic Surgery | DX: R05.9 Cough, unspecified (principal) | CPT/HCPCS: 87070; 87077; 87186 ==

== ENCOUNTER → 2024-03-13 | Outpatient (CLI) | payer MEDICARE, SELFPAY ==
--- NOTE | 2024-03-13 10:55 | RAD_ITS ---
INDICATION: COUGH EXAMINATION/TECHNIQUE: X-RAY - XR Chest 2 Views COMPARISON: June 14, 2021 FINDINGS: LINES/DEVICES: Stable sternotomy wires. LUNGS: No consolidation, edema or effusion. Probable bleb near the left lung apex. No pneumothorax. MEDIASTINUM AND CARDIOVASCULAR STRUCTURES: Cardiac silhouette not enlarged. Central airways and mediastinal contour are unremarkable. Probable hiatal hernia. BONES AND SOFT TISSUES: Unremarkable. RAD/Chest PA and Lateral IMPRESSION: No radiographic evidence of acute cardiopulmonary disease. Hiatal hernia. Electronically Signed: Malachi Novak DO at 20:44 EDT Reading Location ID and State: [facility] / [place] Tel [phone], Service support ,
== END | disposition home or self-care (01) ==
PROVIDERS: PCP Family Medicine; Visit Provider Otolaryngology Otolaryngology/Facial Plastic Surgery
DX: R05.9 Cough, unspecified (principal)
CPT/HCPCS: 71046